=== PATIENT | female | born 1955 | race Caucasian/White ===

== ENCOUNTER 2017-05-21 09:12 | Day surgery (SDC) | payer BC ==
[2017-05-21] VITALS (8 sets, daily range): BP systolic 111–158; BP diastolic 59–86
[~2017-05-21] VITALS: Ht 165.1 cm; Wt 70.3 kg
--- NOTE | 2017-05-21 10:40 | Pre-Procedure Note/Attestation ---
Pre-Procedure Note/Attestation Complete Prior to Procedure Planned Procedure: not applicable Procedure Narrative: esophagogastroduodenoscopy and colonoscopy Indications for Procedure Pre-Operative Diagnosis: screening colon, GERD Attestation I attest that I discussed the nature of the procedure; its benefits; risks and complications; and alternatives (and the risks and benefits of such alternatives ), prior to the procedure, with the patient (or the patient's legal accounts payable representative). I attest that, if there was a reasonable possibility of needing a blood transfusion, the patient (or the patient's legal accounts payable representative) was given the [facility] standardized written summary, pursuant to the Emil Dickson Blood Safety Act ([place] Health and Safety Code # 1645, as amended). I attest that I re-evaluated the patient just prior to the surgery and that there has been no change in the patient's H&P, except as documented below: KALIA IQBAL May 21, 2017 10:40
[2017-05-21] MEDS ORDERED: SIMVASTATIN40 MG ORAL (10:41)
[2017-05-21] MEDS ORDERED: LOSARTAN POTASS50 MG ORAL (10:41)
[2017-05-21] MEDS ORDERED: SYNTHROID75 MCG ORAL (10:41)
--- NOTE | 2017-05-21 10:41 | Short Stay Surgery H&P ---
History of Present Illness History of Present Illness Chief Complaint screening colon, GERD HPI Hannah Jacobs is a 61 year old female who was admitted on for Gerd,Colon Screening Patient History Allergies: Coded Allergies: No Known Allergies (Unverified , 05/20/17) PAST MEDICAL HISTORY: Past Surgeries: Social History: Review of Systems Cardiovascular: Reports: no symptoms Respiratory: Reports: no symptoms Skeletal: Reports: no symptoms Gastrointestinal: Reports: no symptoms Genitourinary: Reports: no symptoms Neurologic: Reports: no symptoms Endocrine: Reports: no symptoms Hematologic: Reports: no symptoms Physical Exam Skin: normal HENT: normal Heart: normal Lungs: normal Abdomen: normal Extremities: normal Plan Plan of Care esophagogastroduodenoscopy and colonoscopy Final Diagnosis: Attestation Are the patient's medical conditions optimized for surgery? Attestation Response: yes KALIA IQBAL May 21, 2017 10:41
[2017-05-21] MEDS ORDERED: Lidocaine 1% MPF 10mg/ml 5ml ONE (11:00)
[2017-05-21] MEDS ORDERED: Propofol 200mg/20ml IV ONE (11:00)
[2017-05-21] MEDS ORDERED: Midazolam 2mg/2ml Inj ONE (11:00)
--- NOTE | 2017-05-21 11:09 | Anethesia Preoperative Eval ---
Anesthesia Pre-op PMH/ROS General Date of Evaluation: May 21, 2017 Time of Evaluation: 10:50 Anesthesiologist: Claude ASA Score: ASA 2 Mallampati Score Class I : Soft palate, uvula, fauces, pillars visible Class II: Soft palate, uvula, fauces visible Class III: Soft palate, base of uvula visible Class IV: Only hard plate visible Mallampati Classification: Class I Surgeon: Christen Diagnosis: GERD, Colon Screening Surgical Procedure: EGD, Colonoscopy Anesthesia History: none Family History: no anesthesia problems Allergies: Coded Allergies: No Known Allergies (Unverified , 05/20/17) Medications: see eMAR Past Medical History Cardiovascular: Reports: HTN, other - high cholosterol Pulmonary: Denies: asthma, COPD, PABLO, other Gastrointestinal/Genitourinary: Reports: GERD - occasional Neurologic/Psychiatric: Denies: dementia, CVA, depression/anxiety, TIA, other Endocrine: Reports: hypothyroidism HEENT: Denies: cataract (L), cataract (R), glaucoma, [place] (L), [place] (R), other Hematology/Immune: Denies: anemia, DVT, bleeding disorder, other Musculoskeletal/Integumentary: 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 Exam Physician Exam Last Vital Signs Date Time Temp Pulse Resp B/P (MAP) Pulse Ox O2 Delivery O2 Flow Rate FiO2 05/21/17 10:39 97.8 79 18 158/86 99 Room Air Constitutional: NAD Neurologic: CN 2-12 intact Cardiovascular: RRR Respiratory: CTA Gastrointestinal: S/NT/ND Airway Exam Mallampati Score: Class I MO: full ROM: full Teeth: intact Dentures: no upper, no lower Anesthesia Pre-op A/P Labs chart reviewed Studies Pre-op Studies: EKG - NSR 75 BPM Risk Assessment & Plan Assessment: A&Ox4 Plan: Discussed with Surgeon to proceed with MAC Status Change Before Surgery: No Pre-Antibiotics Given Within 1 Hr of Incision: No - none per surgeon Moraima Arce CRNA May 21, 2017 11:09
--- NOTE | 2017-05-21 11:10 | Immediate Post-Op Evaluation ---
Immediate Post-Op Evalulation Immediate Post-Op Evalulation Procedure: EGD, Colonoscopy Date of Evaluation: May 21, 2017 Time of Evaluation: 11:27 IV Fluids: NSS 350 ml Blood Products: 0 Estimated Blood Loss: 0 Urinary Output: 0 Blood Pressure Systolic: 113 Blood Pressure Diastolic: 80 Pulse Rate: 69 Respiratory Rate: 24 O2 Sat by Pulse Oximetry: 100 Temperature (Fahrenheit): 97.4 Pain Score (1-10): 0 Nausea: No Vomiting: No Complications None Patient Status: awake, reacts, patent Hydration Status: adequate Given Within 1 Hr of Incision: Moraima Levin CRNA May 21, 2017 11:10
--- NOTE | 2017-05-21 11:12 | Endoscopy Procedure Note ---
Endoscopy Procedure Note Indication for Procedure: screening colon, GERD Procedures Performed: EGD, colonoscopy Operative Findings/Diagnosis: gastritis, hemorrhoids Specimen: yes Pt Tolerated Procedure Well: Yes Estimated Blood Loss: none Anesthesiologist: fernando Anesthesia: MAC Implant(s) used?: No 50 yrs or older w/o bx or poly: Yes 10yrs. F/U not recommended: Yes If not recommended, why?: Above average risk 10 yrs. F/U needed: Yes 18 years or older w/prev. colo: No KALIA IQBAL May 21, 2017 11:12
--- NOTE | 2017-05-21 11:12 | 48 Hour Post Anesthesia Eval ---
Post Anesthesia Evaluation Procedure: EGD, Colonoscopy Date of Evaluation: May 21, 2017 Time of Evaluation: 11:35 Blood Pressure Systolic: 126 0: 80 Pulse Rate: 74 Respiratory Rate: 18 Temperature (Fahrenheit): 97.4 O2 Sat by Pulse Oximetry: 99 Airway: patent Nausea: No Vomiting: No Pain Intensity: 0 Hydration Status: adequate Cardiopulmonary Status: WNL Mental Status/LOC: patient returned to baseline Follow-up care needed: patient intructions given Moraima Arce CRNA May 21, 2017 11:12
--- NOTE | 2017-05-21 17:45 | Procedure Note ---
DATE OF PROCEDURE: 05/21/2017 SURGEON: Jovanny Velásquez M.D. REFERRING PHYSICIAN: Wicho Jacobs M.D. PROCEDURE: Upper endoscopy and colonoscopy with biopsy. ANESTHESIA: Per Claude ENCINAS. INSTRUMENT: Olympus adult flexible upper endoscope and colonoscope. INDICATION: Screening colonoscopy evaluation and chronic GERD. The procedure, risks, benefits, and possible consequences, including hemorrhage, aspiration, perforation and infection, and alternative treatments, were explained to the patient/legal guardian by Dr. Jovanny Velásquez and the patient/legal guardian understood and accepted these risks. DESCRIPTION OF PROCEDURE: After informed consent was obtained and the patient was adequately sedated, Olympus upper endoscope was advanced from mouth into the second portion of the duodenum and retroflexion was performed in the stomach. The patient had evidence of diffuse gastritis. Random biopsies from antrum and body was obtained to rule out H. pylori infection. No evidence of any mass, ulceration, erosion, or any other pathology was seen. GE junction was found to be about 35 cm from the incisors. No evidence of any hiatal hernia. At this time, the upper endoscope was retrieved and the patient was turned over for colonoscopy. First, a rectal exam was performed, which was positive for external and internal hemorrhoids. Then, the scope was advanced from the rectum into the cecum documented by the appendiceal orifice, ileocecal valve and right upper quadrant palpation. Quality of prep was very good. The patient had normal colonoscopic examination. No obvious mass, polyp, diverticulosis, or any other pathology was seen. Retroflexion of rectum showed evidence of medium-sized internal hemorrhoids. SUMMARY OF FINDINGS: 1. Diffuse gastritis, status post biopsy. 2. Internal and external hemorrhoids. RECOMMENDATIONS: 1. Follow up biopsy results and treat accordingly. 2. We will repeat colonoscopy in 5 to 10 years. I want to thank, Dr. Jacobs, for this kind referral. Jovanny Velásquez M.D. DR: TANNER JOB#: [id number] CC: Wicho Jacobs M.D.
--- NOTE | 2017-05-23 14:36 | Cardiology Report ---
APPROVED REPORT EKG Measurement Heart [id number] [place] [id number] Normal sinus rhythm Left bundle branch block Abnormal ECG
== END 2017-05-21 12:35 | disposition home or self-care (01) ==
LOC: GAS 09:12
DX: Z12.11 Encounter for screening for malignant neoplasm of colon (principal); K21.9 Gastro-esophageal reflux disease without esophagitis; K29.70 Gastritis, unspecified, without bleeding; K64.8 Other hemorrhoids; K64.4 Residual hemorrhoidal skin tags; I10 Essential (primary) hypertension; E78.00 Pure hypercholesterolemia, unspecified; E03.9 Hypothyroidism, unspecified; M17.0 Bilateral primary osteoarthritis of knee
CPT/HCPCS: 43239; 45378; 93005; J2250; J2704; 94003; 94150